=== PATIENT | female | born 1995 | race Caucasian/White ===

== ENCOUNTER 2016-11-17 18:08 | Emergency (ER) | payer MEDICAID ==
--- NOTE | 2016-11-17 18:33 | Emergency Department Record ---
History of Present Illness - General Chief complaint: complication Stated complaint: - AB CRAMPING Source: Patient Mode of Arrival: Ambulatory Limitations: No limitations - History of Present Illness Initial comments: 21 yo female at approximately 11 weeks gestation presents to ED with a CC of increased "cramping" today associated with nausea, hot and cold flashes, and nausea symptoms. Patient denies spotting or bleeding symptoms, denies vomiting or change in stools. Patient sees [facility] but has not undergone an US for any reason so far. Patient denies fevers but reports intermittent chills. Patient denies health problems at her baseline. MD Complaint: Abdominal pain Onset/Timin -: Days(s) Location: Pelvis Radiation: None Severity: Moderate Quality: Cramping Consistency: Intermittent Improves with: None Worsens with: None Associated symptoms: Nausea/vomiting Vaginal bleeding: None No complications No complications - Related Data Home Medications Medication Instructions Recorded Confirmed Last Taken Pnv No.95/Ferrous Fum/Folic AC 1 tab PO DAILY 11/17/16 11/17/16 11/17/16 [ Multivitamin Tablet] Allergies Allergy/AdvReac Type Severity Reaction Status Date / Time No Known Drug Allergies Allergy Verified 11/17/16 18:27 Review of Systems Constitutional: Reports: Chills. Denies: Fever, Malaise, Night sweats Eyes: Denies: Eye discharge, Eye pain ENT: Denies: Congestion, Ear pain, Epistaxis Respiratory: Denies: Cough, Dyspnea Cardiovascular: Denies: Chest pain, Dyspnea on exertion Endocrine: Denies: Fatigue, Heat or cold intolerance Gastrointestinal: Reports: Abdominal pain, Nausea. Denies: Constipation, Vomiting Genitourinary: Denies: Incontinence, Retention Musculoskeletal: Denies: Arthralgia, Back pain, Gout, Joint swelling Skin: Denies: Bruising, Change in color Neurological: Denies: Abnormal gait, Confusion, Headache Psychiatric: Denies: Anxiety Hematological/Lymphatic: Denies: Anemia, Blood Clots Physical Exam - General General Appearance: Alert, Oriented x3, Cooperative, No acute distress Limitations: No limitations - Head Head exam: Atraumatic, Normocephalic, Normal inspection Head exam detail: negative: Abrasion, Contusion, Hollis's sign, General tenderness, Hematoma, Laceration - Eye Eye exam: Normal appearance. negative: Conjunctival injection, Periorbital swelling, Periorbital tenderness, Scleral icterus - ENT Ear exam: negative: Auricular hematoma, Auricular trauma Nasal Exam: negative: Active bleeding, Discharge, Dried blood, Sinus tenderness Mouth exam: negative: Drooling, Laceration, Tongue elevation - Neck Neck exam: Normal inspection. negative: Meningismus, Tenderness - Respiratory Respiratory exam: Normal lung sounds bilaterally. negative: Rhonchi, Stridor, Wheezes - Cardiovascular Cardiovascular Exam: Regular rate, Normal rhythm, Normal heart sounds - GI/Abdominal GI/Abdominal exam: Soft. negative: Rebound, Rigid, Tenderness - Rectal Rectal exam: Deferred - exam: Deferred - Extremities Extremities exam: Normal inspection. negative: Calf tenderness, Pedal edema, Tenderness - Back Back exam: Denies: CVA tenderness (R), CVA tenderness (L) - Neurological Neurological exam: Alert, Normal gait, Oriented X3 - Psychiatric Psychiatric exam: Normal affect, Normal mood - Skin Skin exam: Normal color. negative: Abrasion Type of lesion: negative: abrasion Course - Reevaluation(s) Reevaluation #1: 11/17/16 18:32 [facility] 1-call contacted for transfer. Reevaluation #2: 11/17/16 18:50 Case was discussed with Dr. Davis, will accept transfer for US of the pelvis: Disposition Disposition: Transfer Clinical Impression: Abdominal pain affecting Disposition: Acute Care Hospital Transfer Transfer To: [facility] Reason For Transfer: US imaging of the pelvis Accepting Physician: Ryan Time Discussed w/Accepting Physician: 18:51 Condition: (2) Stable Forms: Patient Portal Access Time of Disposition: 18:51 Quality - Quality Measures Quality Measures: N/A - Blood Pressure Screening Blood Pressure Classification: Hypertensive Reading Systolic Measurement: 122 Diastolic Measurement: 91 Screening for High Blood Pressure: < First Hypertensive BP, F/U Documented > [ [id number]] First Hypertensive Follow-up Interventions: Referral to alternative/primary care provider.
== END 2016-11-17 19:11 | disposition short-term general hospital (02) ==
LOC: ER 18:08
DX: O26.891 Other specified pregnancy related conditions, first trimester (principal); R10.9 Unspecified abdominal pain; R11.0 Nausea; Z3A.11 11 weeks gestation of pregnancy
CPT/HCPCS: 99283